=== PATIENT | female | born 1970 | race Caucasian/White ===

== ENCOUNTER 2016-06-08 23:46 | Inpatient (IN) ==
[2016-06-09] MEDS ORDERED: ASPIRIN PO STA
--- NOTE | 2016-06-09 00:36 | EKG Report ---
Test Performed on : 06/09/2016 00:12:44 AM Test Reason : CHEST PAIN Blood Pressure : / mmHG Vent. Rate : 071 BPM Atrial Rate : 071 BPM P-R Int : 132 ms QRS Dur : 086 ms QT Int : 448 ms P-R-T Axes : 019 018 021 degrees QTc Int : 486 ms Normal sinus rhythm. Prolonged QT Abnormal ECG When compared with ECG of 09-JUN-2016 00:10, (Unconfirmed) No significant change was found Unconfirmed Result
[2016-06-09] MEDS ORDERED: MORPHINE ONE (00:38)
[2016-06-09 00:41] LABS: MANUAL DIFF NEEDED? NO
[2016-06-09] MEDS ORDERED: MORPHINE IV ONE (00:47)
[2016-06-09 00:52] LABS: BASO% 0.6 % (0.0-0.8); EOS# 0.19 X1000 (0.0-0.7); EOS% 1.4 % (0.0-10.0); HEMOGLOBIN 13.8 g/dL (12.0-16.0); IMM GRAN# 0.04 X1000 (0.0-0.04); IMM GRAN% 0.3 % (0.0-0.5); LYMPH# 3.88 X1000 (1.2-3.4); LYMPH% 28.9 % (20.5-51.1); MCH 30.4 PG (27-31); MCHC 33.7 g/dL (33-37); MCV 90.3 FL (81-99); MONO# 0.87 X1000 (0.11-0.59); MONO% 6.5 % (1.7-9.3); MPV 10.1 FL (7.4-10.4); NEUT% 62.3 % (42.2-75.2); PLT 373 X1000 (130-400); RBC 4.54 XMIL (4.2-5.4)
[2016-06-09 01:20] LABS: INR 0.95 (0.86-1.15)
[2016-06-09 01:21] LABS: PTT PL 27.6 Seconds (22.6-43.9)
[2016-06-09 01:43] LABS: AGAP 15; ALBUMIN 4.3 g/dL (3.5-5.0); ALKALINE PHOSPHATASE 75 U/L (32-104); BUN 11 mg/dL (8-22); CALCIUM 9.7 mg/dL (8.8-10.2); CHLORIDE 102 mmol/L (98-107); CK PROFILE 70 U/L (24-173); COSMO 275; GOT 13 U/L (10-30); GPT 10 U/L (10-36); MAGNESIUM 1.8 mg/dL (1.5-2.7); POTASSIUM 3.9 mmol/L (3.5-5.1); SODIUM 138 mmol/L (136-145); TCO2 21 mmol/L (25-35); TOTAL PROTEIN 7.3 g/dL (6.3-8.3)
[2016-06-09] MEDS ORDERED: ZOFRAN IV PRN (02:30)
[2016-06-09] MEDS ORDERED: MORPHINE IV PRN ×2 (02:30→06:35)
--- NOTE | 2016-06-09 06:31 | EKG Report ---
Test Performed on : 06/09/2016 03:55:53 AM Test Reason : chesy pain Blood Pressure : / mmHG Vent. Rate : 062 BPM Atrial Rate : 062 BPM P-R Int : 144 ms QRS Dur : 092 ms QT Int : 480 ms P-R-T Axes : 017 012 026 degrees QTc Int : 487 ms Normal sinus rhythm. Prolonged QT Abnormal ECG When compared with ECG of 09-JUN-2016 00:12, (Unconfirmed) No significant change was found Unconfirmed Result
--- NOTE | 2016-06-09 10:09 | Diag Imaging Result Document ---
PROCEDURE NAME: CHEST-2 VIEWS - 06/09/2016 CHEST X-RAY, TWO VIEWS: COMPARISON: None. FINDINGS: The lungs are normally expanded and clear. Heart size and mediastinal contours are normal. No pneumothorax or pleural effusion. IMPRESSION: Negative exam.
--- NOTE | 2016-06-09 12:28 | Diag Imaging Result Document ---
PROCEDURE NAME: LUNG SCAN / VQ - 06/09/2016 PULMONARY VENTILATION PERFUSION SCAN: COMPARISON: None. FINDINGS: 32.6 mCi of DTPA was used for inhalation. 5.9 mCi of MAA was used for injection. There is normal localization pattern of both radiotracers. IMPRESSION: Negative exam.
[2016-06-09 13:41] VITALS: BP 130/87
--- NOTE | 2016-06-14 19:20 | ED EKG INTERP ---
This chart was entered by Azeb Trivedi Scribe, acting as scribe for Nato Neal DO. EKG Interpretation - EKG Time of EKG reading by physician:: 00:12 EKG Read and Signed by:: Nato Neal EKG Interpretation (*Must complete 3 of following elements*): Abnormal Rate: 71 Rhythm: NSR [place]: normal QRS: other (PROLONGED QT) ST Wave: normal This chart was documented by the indicated scribe, (Azeb Trivedi Scribe) and accurately reflects the services I performed and decisions made by , Nato Neal DO, as attested by the provider's signature.
--- NOTE | 2016-06-14 19:21 | PROVIDER DOCUMENTATION ---
This chart was entered by Azeb Trivedi Scribe, acting as scribe for Nato Neal DO. HPI-Chest Pain - General Chief Complaint: Chest Pain Stated Complaint: SOB Time Seen by Provider: 06/09/16 00:01 Source: patient Allergies/Adverse Reactions: Patient Allergies Allergy/AdvReac Type Severity Reaction Status Date / Time ciprofloxacin [From Cipro] Allergy ANAPHYLAXIS Verified 06/08/16 23:58 ciprofloxacin HCl * Allergy ANAPHYLAXIS Verified 06/08/16 23:58 [From Cipro] codeine Allergy ANAPHYLAXIS Verified 06/08/16 23:58 diphenhydramine HCl * Allergy ANAPHYLAXIS Verified 06/08/16 23:58 [From Benadryl] Iodinated Contrast Media - Allergy ANAPHYLAXIS Verified 06/08/16 23:58 Oral and [IV Dye] levofloxacin [From Levaquin] Allergy ANAPHYLAXIS Verified 06/08/16 23:58 Home Medications: Home Medication List Medication Instructions Recorded Confirmed Last Taken Type Aspirin [Aspir-Low] 81 mg PO DAILY 06/08/16 06/08/16 06/08/16 History Metoprolol [Lopressor] 25 mg PO DAILY 06/08/16 06/08/16 06/08/16 History Nitroglycerin 0.4 mg SL 06/08/16 06/08/16 History - History of Present Illness-CP Nature of Presenting Problem: PT IS A 46YOF PRESENTING TO THE ED C/O CP/SOB. PT STATES SHE IS CURRENTLY UNDER THE CARE OF A CARDIOLOGISTS IN [place] AND PT CURRENTLY HAS A HOLTER MONITOR ON. PT STATES SHE HAS HAD 2 RUNS OF SVT AND HAS A HX OF PE'S ON 2 DIFFERENT OCCASIONS. PT STATES SHE HAD A RUN OF SVT THAT LASTED ABOUT 45MINS YESTERDAY MORNING AND SHE WAS ABLE TO CONVERT HERSELF. PT HAS A NEW PAIN UNDER HER LEFT BREAST UP TO HER SHOULDER WITH THE SOB TONIGHT. NO N/V/DIAPHORESIS NOTED. Location: reports: substernal Chest Pain Radiation: reports: shoulders (LEFT SHOULDER) Quality of Pain: reports: aching Severity in ED: mild Onset/Duration: 24 hours ago Timing: still present, intermittent Context/Activities at Onset: reports: light activity Modifying Factors: improves with: nothing Associated Symptoms: reports: shortness of breath. denies: abdominal pain, diaphoresis, nausea, vomiting Nitro Today/Relief: no nitro taken today Aspirin Treatment Today: 81 mg x 1, provided at home Prior Chest Pain/Cardiac Workup: reports: pulmonary embolism Similar Symptoms Previously?: Yes Recently Seen Here or By Another Healthcare Provider: No Review of Systems - Adult - REVIEW OF SYSTEMS - ADULT Constitutional: reports: no symptoms reported Eyes: reports: no symptoms reported Ears, Nose, Mouth & Throat: reports: no symptoms reported Cardiovascular: reports: see HPI, chest pain, irregular heart rate. denies: syncope Respiratory: reports: see HPI, dyspnea on exertion, shortness of breath. denies : cough, wheezing Gastrointestinal: reports: no symptoms reported Genitourinary: reports: no symptoms reported Musculoskeletal: reports: no symptoms reported Integumentary: reports: no symptoms reported Neurological: reports: no symptoms reported Psychiatric: reports: no symptoms reported Endocrine: reports: no symptoms reported Hematologic/Lymphatic: reports: no symptoms reported Allergic/Immunologic: reports: no symptoms reported All Other Systems: Reviewed and Negative Past History - Adult - PAST MEDICAL HISTORY-ADULT Review of Records: reports: Old Records Reviewed, Nursing Assessment Review, Medications Reviewed, Social history reviewed & non-contributory. Major Childhood Illnesses: reports: denies history Cardiovascular: reports: denies history Respiratory: reports: denies history Gastrointestinal: reports: denies history Obstetrical/Gynecological: reports: denies history Genitourinary: reports: denies history Musculoskeletal: reports: denies history Neurological: reports: denies history Endocrine/Immune: reports: denies history Other Conditions: reports: denies history - IMMUNIZATION STATUS Childhood Immunizations: See Nurse Assessment Flu Vaccine: See Nurse Assessment - FAMILY HISTORY Family History: reviewed, not pertinent - SOCIAL HISTORY Smoking: denies, non-smoker Provider spent 3-5 mins advising pt. on dangers of tobacco.: Discussed manners to quit use, and f/u contacts for add'l counseling. Substance Use: none/never, denies Alcohol Use Frequency: never Living Situation: family Physical Exam-General - PHYSICAL EXAM-ADULT Initial Vital Signs Reviewed: Yes - CONSTITUTIONAL General Appearance: appears well, alert, mild distress. negative: no apparent distress - EYES Eyes: PERRL/EOMI, pink conjunctivae, fundi clear, no AV nicking - HEAD, EARS, NOSE, MOUTH & THROAT HENMT: normocephalic/atraumatic, moist mucous membranes, normal ENT inspection, TMs normal, pharynx normal - NECK Neck: non-tender, full range of motion, supple, normal inspection - RESPIRATORY Respiratory: chest non-tender, lungs clear, normal breath sounds, no pleuratic chest pain, no respiratory distress, no accessory muscle use - CARDIOVASCULAR Cardiovascular: normal peripheral pulses, regular rate, rhythm, no edema, no gallop, no JVD, no murmur - GASTROINTESTINAL (ABDOMEN) Abdominal Exam: normal bowel sounds, non tender, soft, no organomegaly, no pulsatile mass - LYMPHATIC Lymphatic: no adenopathy - MUSCULOSKELETAL Back Exam: normal inspection, no CVA tenderness, no vertebral tenderness Extremity: normal range of motion, non-tender, normal gait, normal inspection, no pedal edema, no calf tenderness, normal capillary refill, pelvis stable - SKIN Integumentary: normal color, normal turgor, warm/dry - NEUROLOGIC Neurologic: basket assembler II-XII nml as tested, grossly normal, no motor/sensory deficits - PSYCHIATRIC Psych/Mental Status: normal thought content, normal thought process, oriented x 3, anxious. negative: depressed affect Progress - PLAN OF CARE/RESULTS Progress/Plan/Lab Results: Orders Category Date Time Status Admit - [facility] Routine AdmDCTranf 06/09/16 02:30 Ordered Activity - Strict Bedrest ORDERED Care 06/09/16 02:30 Active Call Admitting on Arrival AT ADMISSION Care 06/09/16 02:32 Active Cardiac Monitoring DIRECTED Care 06/09/16 00:00 Active Oxygen Therapy- ED Nursing DIRECTED Care 06/09/16 00:00 Active Saline Loc DIRECTED Care 06/09/16 02:30 Active Saline Loc NOW Care 06/09/16 00:00 Active Vital Signs Order ARRIVAL TO ROOM Care 06/09/16 02:30 Active NPO Diet 06/09/16 02:32 Completed CHEST-2 VIEWS [RAD] Stat Exams 06/09/16 00:00 Completed LUNG SCAN / VQ [NM] Stat Exams 06/09/16 07:00 Completed CBC WITH ELECTRONIC DIFF [HEME] Stat Lab 06/09/16 00:35 Completed CK PROFILE [SP CHEM] Stat Lab 06/09/16 00:35 Completed COMPREHENSIVE METABOLIC PANEL [CHEM] Stat Lab 06/09/16 00:35 Completed D-DIMER PL [COAG] Stat Lab 06/09/16 00:35 Completed MAGNESIUM [CHEM] Stat Lab 06/09/16 00:35 Completed PRO B-NATRIURETIC PEPTIDE Stat Lab 06/09/16 00:35 Completed PR[address]IME WITH INR PL [COAG] Stat Lab 06/09/16 00:[address] [COAG] Stat Lab 06/09/16 00:35 Completed TROPONIN T Stat Lab 06/09/16 00:35 Completed Aspirin Med 06/09/16 00:00 Discontinued 325 mg PO STAT STA Morphine Med 06/09/16 00:38 Discontinued 2 mg .ROUTE .STK-MED ONE Morphine Med 06/09/16 00:47 Discontinued 2 mg IV NOW ONE Morphine Med 06/09/16 02:30 Discontinued 2 mg IV Q2H PRN PRN Ondansetron [Zofran] Med 06/09/16 02:30 Discontinued 4 mg IV Q4H PRN PRN Oxygen Device Routine Oth 06/09/16 02:32 Active Telemetry [OM.EQ] Routine Oth 06/09/16 02:30 Active EKG [EKG] Stat Ther 06/09/16 00:00 Draft Result Diagrams: 06/09/16 00:35 06/09/16 00:35 Departure - Departure Time of Disposition Decision: 01:30 DIAGNOSIS: Chest pain Disposition: HOME 01 Certified Medical Emergency: Emergent Condition: Stable This chart was documented by the indicated scribe, (Azeb Trivedi Scribe) and accurately reflects the services I performed and decisions made by Ángel wesley Deepak K., DO, as attested by the provider's signature.
--- NOTE | 2016-06-17 14:53 | HISTORY AND PHYSICAL ---
CHIEF COMPLAINT: Chest pain. HISTORY OF PRESENT ILLNESS: Patient is a 46-year-old female who has a known extensive history of heart issues and chest pain. She presented to the emergency department. She is currently under the care of Cardiology in [place]. She actually has a Holter monitor currently on her body. She notes that she had 2 runs of elevated heart rate the lasted about 45 minutes. She was able to perform vasovagal maneuver and convert herself. However, she awoke this morning with pain under her left breast. Denies any radiation of said pain. Denies any nausea, vomiting, diaphoresis. Denies any other symptoms. REVIEW OF SYSTEMS: Denies fevers, chills, cough, congestion. Denies dysuria, frequency, urgency. Denies hesitancy, polyuria, polydipsia. Denies skin rashes, weight loss, or weight gain. PAST MEDICAL HISTORY: Significant for frequent palpitations. ALLERGIES: Cipro causing anaphylaxis. Benadryl causing anaphylaxis. IV PPI and Levaquin causing anaphylaxis. MEDICATIONS: Aspirin 81, Lopressor 25, nitroglycerin 0.4, although she did not take the nitroglycerin earlier today with her chest pain. FAMILY HISTORY: Noncontributory. SOCIAL HISTORY: Patient does not smoke or drink. She lives in [place]. She is traveling. PHYSICAL EXAMINATION: VITAL SIGNS: Reviewed. She is afebrile. O2 saturation 98% on room air. Blood pressure is stable. Heart rate 80. GENERAL: Patient is awake, alert, oriented. She is currently in no real respiratory distress. Pleasant to talk with. Speech is regular. Memory is intact. HEENT: Normocephalic, atraumatic. SHAYLA. NECK: Supple. CARDIOVASCULAR: Regular rate. CHEST: Relatively clear. ABDOMEN: Soft. EXTREMITIES: Moves all extremities. There are no focal neurological changes. SKIN: Warm and dry. No rashes. LABORATORY STUDIES: First set of cardiac enzymes are negative. CBC essentially negative with a white count 13. CMP is normal. D-dimer is elevated. ASSESSMENT: 1. Elevated D-dimer. 2. Leukocytosis of unknown etiology. 3. Chest pain although this appears to be more musculoskeletal and not true cardiac. 4. History of palpitations. PLAN: We will continue to observe the patient. We will check a V/Q scan to rule out pulmonary embolus. We will check ultrasound of bilateral lower extremities to rule out DVT. Certainly cannot use IVP dye as patient reports anaphylactic reaction. cc: Kiran Gutierrez MD
--- NOTE | 2016-06-17 20:34 | DISCHARGE SUMMARY ---
ADMISSION DATE: 06/09/2016 DISCHARGE DATE: 06/09/2016 DISCHARGE DIAGNOSIS: 1. Elevated D-dimer likely chronic in nature as V/Q scan was negative as is her ultrasound lower extremity. 2. Shortness breath resolved. 3. Palpitations resolved. CONSULTATIONS: None. PROCEDURE: None. HOSPITAL COURSE: Patient is a 46-year-old female who was admitted as on the [facility]. Treated in usual fashion. She ruled out for an [place] and ruled out for pulmonary embolus. Her symptoms had resolved. She was feeling better and therefore she will be discharged home. DISPOSITION: The patient will be discharged home. She was instructed to follow up with her primary care as well as her primary senior electronics engineer when she returns to [place]. No other changes made on the current home medications. cc: Kiran Gutierrez MD
== END 2016-06-09 13:34 | disposition home or self-care (01) ==
LOC: P.ED 23:46 → P.EDIPHOLD 06-09 02:48
PROVIDERS: ATTEND Family Medicine